=== PATIENT | male | born 1990 | race Caucasian/White ===

== ENCOUNTER 2020-10-20 20:59 | Emergency (ER) | payer SELFPAY ==
[~2020-10-20] VITALS: Ht 165.1 cm; Wt 63.5 kg
--- NOTE | 2020-10-20 21:12 | NUR ---
Pt given warm blankets.
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
[2020-10-20 21:15] LABS: HEMOGLOBIN 16.1 g/dL (13.3-17.7); MEAN PLATELET VOLUME 10.1 fL (9.0-12.2); WHITE BLOOD COUNT 11.8 10^3/uL (4.3-11.0)
[2020-10-20] MEDS ORDERED: fentaNYL INJECTION 100 MCG/2 ML AMP IVP ONE ×2 (21:15→22:00)
[2020-10-20 21:28] LABS: ALBUMIN 4.4 GM/DL (3.2-4.5); CHLORIDE 105 MMOL/L (98-107); POTASSIUM 4.1 MMOL/L (3.6-5.0); SODIUM 137 MMOL/L (135-145)
[2020-10-20 21:29] LABS: CALCIUM 9.1 MG/DL (8.5-10.1)
[2020-10-20 21:31] LABS: GLUCOSE 103 MG/DL (70-105); TOTAL PROTEIN 8.1 GM/DL (6.4-8.2)
[2020-10-20 21:32] LABS: BILIRUBIN,TOTAL 0.2 MG/DL (0.1-1.0); CARBON DIOXIDE 18 MMOL/L (21-32)
[2020-10-20 21:34] LABS: ALKALINE PHOSPHATASE 58 U/L (40-136); CREATININE SERUM 0.88 MG/DL (0.60-1.30); GFR ESTIMATED > 60
[2020-10-20 21:36] LABS: BILIRUBIN,DIRECT 0.1 MG/DL (0.0-0.3); BILIRUBIN,INDIRECT 0.1 MG/DL; BUN/CREATININE RATIO 14
[2020-10-20 21:37] LABS: ALANINE AMINOTRANSFERASE 28 U/L (0-55)
[2020-10-20] MEDS ORDERED: ceFAZolin INJECTION 1,000 MG in WATER (STERILE) FOR INJECTION 10 ML IV ONE (21:45)
[2020-10-20] MEDS ORDERED: TETANUS,DIPTH,PERTUSS P/F (BOOSTRIX) 0.5 ML VIAL IM ONE (21:45)
--- NOTE | 2020-10-20 21:54 | Diagnostic Imaging Report ---
INDICATION: Injury to left ankle. AP, oblique, and lateral views of the left ankle obtained at 9:42 p.m. There is a fracture of the distal fibula about 7 cm above the ankle joint, with about 6 mm of displacement of the fracture fragments. There is an oblique to horizontal fracture of the medial malleolus of the distal tibia. There is no dislocation of the ankle joint. IMPRESSION: Acute fracture of distal fibular shaft with some displacement. Oblique to horizontal fracture of the medial malleolus of the distal tibia. Dictated by: Dictated on workstation # [id number]
--- NOTE | 2020-10-20 21:55 | Diagnostic Imaging Report ---
INDICATION: Left foot injury AP, oblique, and lateral views the left foot are obtained. The bones of the foot appear intact with no acute fracture. Distal tibial and fibular fractures are noted, see ankle dictation. IMPRESSION: Distal fibular and tibial fractures are present, see ankle dictation. The bones of the foot appear intact. Dictated by: Dictated on workstation # [id number]
--- NOTE | 2020-10-20 21:56 | Diagnostic Imaging Report ---
INDICATION: Injury to left knee. AP, oblique, lateral views of the left knee are obtained. No fracture or acute bony abnormality is seen. IMPRESSION: Negative left knee. Dictated by: Dictated on workstation # [id number]
[2020-10-20] MEDS ORDERED: KETAMINE/NaCl 50 MG/5 ML SYRINGE (ED ONLY) IV ONE (22:00)
[2020-10-20] MEDS ORDERED: LIDOCAINE/EPI 2% 1:100,00 (XYLOCAINE) 20 ML VIAL INJ ONE (22:00)
[2020-10-20] MEDS ORDERED: RX-ONDANSETRON 4 MG ODT (ZOFRAN) PPK #4 PO STA (22:42)
[2020-10-20] MEDS ORDERED: RX-HYDROCODONE/APAP 5/325 MG #4 TAB PK PO PRN (22:45)
[2020-10-20] MEDS ORDERED: ACHD5005 PO (22:55)
[2020-10-20] MEDS ORDERED: ONDA4TAB11 PO (22:55)
[2020-10-20] MEDS ORDERED: CEPH500T PO (22:55)
[2020-10-20 23:07] VITALS: BP 112/66
--- NOTE | 2020-10-20 23:17 | NUR ---
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 THE NUMBER LEFT WITH REGISTRATION DOES NOT RING AND GOES STRAIGHT TO [employer]. MESSAGE LEFT FOR RETURN CALL PT IS READY TO BE DISCHARGED AND SPEAKS LITTLE LITHUANIAN AND HAS HAD RECENT PAIN MEDICATION. NUMBER GIVEN FOR PT RINGS AND THEN MESSAGE STATING, "[employer] HAS NOT BEEN SET UP".
--- NOTE | 2020-10-20 23:45 | NUR ---
[employer] called and requested that they send an officer to the patients home to get the family to come get the patient. Multiple calls to the sister and go unanswered.
--- NOTE | 2020-10-20 23:57 | NUR ---
Made contact with and sister; they are on their way to pharmacy picking tech the patient.
== END 2020-10-21 00:05 | disposition home or self-care (01) ==
LOC: ER 21:02 → EDBD 21:02 → ER 10-21 00:05
DX: S82.432A Displaced oblique fracture of shaft of left fibula, initial encounter for closed fracture (principal); S82.52XA Displaced fracture of medial malleolus of left tibia, initial encounter for closed fracture; Z23 Encounter for immunization; V03.00XA Pedestrian on foot injured in collision with car, pick-up truck or van in nontraffic accident, initial encounter
CPT/HCPCS: 12034; 29505; 73562; 73610; 73630; 80048; 80076; 85027; 86850; 86900; 86901; 99285; G0480; 36415; 80320; 90715